=== PATIENT | female | born 1985 | race African-American/Black ===

== ENCOUNTER 2018-09-03 09:40 | Day surgery (SDC) | payer MEDICAID ==
[2018-09-02 15:52] LABS: BASOPHIL % 0.2 % (0.0-0.2); EOSINOPHIL # 0.1 10^3/uL (0.0-0.2); EOSINOPHIL % 1.1 % (0.0-5.0); HEMOGLOBIN 13.7 g/dL (12.0-15.0); LYMPHOCYTES # 3.4 10^3/uL (1.0-4.8); LYMPHOCYTES % 32.1 % (24.0-44.0); MEAN CELL HGB 28.4 pg (26-34); MEAN CELL HGB CONCENTRATION 33.3 g/dL (33-37); MEAN CORP VOLUME 85.1 fL (78-100); MEAN PLATELET VOLUME 9.9 fL (7.8-11.0); MONOCYTES % 9.5 % (5.0-12.0); NEUTROPHIL # 6.1 10^3/uL (1.8-7.7); RED CELL DISTRIBUTION WIDTH 14.3 % (11.5-14.5); WHITE BLOOD CELL 10.7 10^3/uL (4.5-11.0)
[2018-09-02 15:58] LABS: CARBON DIOXIDE 26.3 mmol/L (20.0-32)
[2018-09-02 16:00] LABS: BILIRUBIN,URINE NEGATIVE (NEGATIVE)
[2018-09-02 16:08] LABS: APPEARANCE,URINE HAZY (CLEAR); UA COLOR YELLOW (YELLOW)
[2018-09-03] VITALS (10 sets, daily range): BP systolic 117–137; BP diastolic 53–88
[~2018-09-03] VITALS: Ht 162.6 cm; Wt 77.1 kg
[2018-09-03] MEDS: LACTATED RINGERS 1,000 ML IV SCH ×2 (09:18→12:08)
[~2018-09-03 09:40] MED LIST: CIPR500T86 PO; DECADRON ONE; DIPRIVAN IV ONE; LACTATED RINGERS 1,000 ML ONE; LEVAQUIN 100 ML IV ONE; LIDOCAINE 2% VIAL ONE; NS 3000ML IRR IR ONE; ONDA4TAB13 PO; SODIUM CHLORIDE IR ONE; SUBLIMAZE ONE; TRAM50TA PO; VERSED ONE; ZOFRAN ONE
[2018-09-03] MEDS ORDERED: SUBLIMAZE ONE (10:59)
[2018-09-03] MEDS ORDERED: ZOFRAN IV PRN (11:00)
[2018-09-03] MEDS ORDERED: LACTATED RINGERS 1,000 ML IV SCH (11:00)
[2018-09-03] MEDS ORDERED: BENADRYL IV PRN (11:00)
[2018-09-03] MEDS ORDERED: VENTOLIN IH PRN (11:00)
[2018-09-03] MEDS ORDERED: PHENERGAN IV PRN (11:00)
[2018-09-03] MEDS ORDERED: NORCO 7.5MG PO PRN (11:00)
[2018-09-03] MEDS: SUBLIMAZE IV PRN ×2 (11:03→11:08)
[2018-09-03] MEDS ORDERED: NORCO 7.5MG PO ONE (11:31)
--- NOTE | 2018-09-03 12:01 | OPH ---
DATE OF SURGERY: 09/03/2018 PREOPERATIVE DIAGNOSIS: Calculus, left kidney. Isaias Estrada MD DR: RAMON/akhil JOB# [id number]
[2018-09-03] MEDS ORDERED: ZOFRAN ONE (12:03)
--- NOTE | 2018-09-03 12:06 | OPH ---
DATE OF SURGERY: 09/03/2018 PREOPERATIVE DIAGNOSIS: Large calculus left kidney with upper pole left hydronephrosis. FINAL DIAGNOSIS: Large calculus left kidney with upper pole left hydronephrosis. PROCEDURE: On cystoscopy left retrograde insertion of double-J ureteral stent. DESCRIPTION OF PROCEDURE: The patient was brought to the cystoscopy room, was put in supine position on the cystoscopy table. After the patient was given a satisfactory and adequate general anesthesia, the patient was placed in the lithotomy position. The genitalia was then prepped and draped aseptically in the usual manner. First, a 23-American cystoscope was inserted per urethra up to the bladder. With the use of the right angle lens, the bladder was visualized. There was no tumor, no calculi, no ulcerations seen. A left retrograde was initially performed by inserting a 7-American ureteral catheter in the left ureteral orifice, injected with dye and it showed no stones in the ureter, but there was a large stone in the left kidney with upper pole hydronephrosis. A 6-American double J left ureteral stent was inserted from the orifice all the way to the kidney. After this was done, the bladder was emptied with fluid. Instrument was removed. The patient was then awakened, was transferred to the recovery room in stable condition. Isaias Estrada MD DR: RAMON/akhil JOB# [id number]
--- NOTE | 2018-09-03 12:42 | DIREP ---
PROCEDURE:XRAY FLUOROSCOPY COMPARISON:None. INDICATIONS:CYSTO RETROGRADE, POSSIBLE 31.99MGY 93.4SECS FLURO 9 FILMS10 CCOMNI 240 TECHNIQUE:9 images. 93.4 seconds of fluoroscopy FINDINGS: On the initial, there is large upper pole stone. With contrast injection, there are be multiple filling defects. On final images, there is a left ureteral stent. CONCLUSION: 1. Nephrolithiasis 2. Left ureteral stent placement Dictated by: Sanjay Shepherd Jr. On 09/03/2018 at 12:39 PM
== END 2018-09-03 13:00 | disposition home or self-care (01) ==
LOC: SDC 09:40
PROVIDERS: ATTEND Urology
DX: N13.2 Hydronephrosis with renal and ureteral calculous obstruction (principal); E66.3 Overweight; Z68.29 Body mass index [BMI] 29.0-29.9, adult; F17.210 Nicotine dependence, cigarettes, uncomplicated; Z79.2 Long term (current) use of antibiotics; Z79.01 Long term (current) use of anticoagulants; Z83.3 Family history of diabetes mellitus
CPT/HCPCS: 36415; 52332; 74420; 80051; 81000; 81025; 82565; 84520; 85025; 85610; 85730; 87086; A4217 ×2; J1100; J1956; J2001; J2250; J2405 ×2; J3010 ×2; J3490; J7120 ×2; Q9966; 76000; C1758; C1769; C2617